=== PATIENT | male | born 1990 | race Caucasian/White ===

== ENCOUNTER 2017-04-05 20:01 | Emergency (ER) | payer SELFPAY ==
[2017-04-05] MEDS ORDERED: TORADOL IM ONE (21:35)
[2017-04-05 22:02] LABS: Bilirubin,Urine NEG (Negative); Blood,Urine LG (Negative); Color,Urine Red (Yellow); Nitrite,Urine NEG (Negative); Protein,Urine <15 mg/dL mg/dL (Negative); Urobilinogen,Urine < 2.0 mg/dL (<2.0); WBC,Urine < 1.0 /HPF (0.0-6.0)
[2017-04-05 22:15] LABS: Basophils # (Auto) 0.1 K/mm3 (0.0-0.1); Basophils % (Auto) 0.6 % (0.0-1.8); Eosinophils # (Auto) 0.1 K/mm3 (0.0-0.4); Eosinophils % (Auto) 0.9 % (0.0-4.3); Hemoglobin 16.2 gm/dl (11.8-15.2); Lymphocytes # (Auto) 3.3 K/mm3 (1.2-5.4); Mean Corpuscular HGB Conc 34 % (32-34); Mean Corpuscular Hemoglobin 28 pg (28-32); Mean Corpuscular Volume 84 fl (84-94); Monocytes # (Auto) 0.6 K/mm3 (0.0-0.8); Monocytes % (Auto) 4.9 % (0.0-7.3); Platelet Count 262 K/mm3 (140-440); Red Blood Count 5.73 M/mm3 (3.65-5.03); Red Cell Distribution Width 13.8 % (13.2-15.2)
[2017-04-05 22:32] LABS: Albumin 4.7 g/dL (3.9-5); BUN/Creatinine Ratio 21; Blood Urea Nitrogen 15 mg/dL (9-20); Calcium 11.3 mg/dL (8.4-10.2); Hemolysis Index 69
[2017-04-05 22:41] LABS: Alanine Aminotransferase 59 units/L (7-56)
--- NOTE | 2017-04-05 23:28 | Cat Scan Report ---
FINAL REPORT EXAM: CT ABDOMEN PELVIS WO CON HISTORY: rt flank pain/RLQ pain/hx renal calculi COMPARISON: None available. TECHNIQUE: Contiguous axial images were obtained. Additional sagittal and coronal reformatted images were obtained. FINDINGS: Lung bases are clear. Mild diffuse fatty infiltration of the liver. No calcified gallstones. Spleen, pancreas, adrenal glands are grossly unremarkable. Bilateral punctate nonobstructive renal calculi. Mild bilateral hydroureteronephrosis. Slightly more pronounced on the right. In the distal right ureter, closely grouped small calculi measuring 8 millimeters in craniocaudal dimension and approximately 4 x 4 millimeters in axial dimension. In the mid to distal left ureter, there are 2 closely associated calculi measuring 4 x 4 and 6 x 4 millimeters. No urinary bladder calculi. Prostate gland is unremarkable. No free fluid lymphadenopathy in the pelvic cavity. The appendix is normal in caliber. Large and small bowel loops normal in caliber. Lumbar vertebral body heights are preserved. Bony pelvis is grossly intact. IMPRESSION: Bilateral mid to distal ureteral calculi causing mild bilateral hydroureteronephrosis slightly more pronounced on the right. There multiple nonobstructive renal calculi bilaterally.
[2017-04-06] MEDS ORDERED: ZOFRAN IM ONE (10:27)
[2017-04-06] MEDS ORDERED: MORPHINE IM ONE (10:27)
--- NOTE | 2017-04-06 10:32 | Emergency Department Report ---
ED Abdominal Pain HPI - General Chief Complaint: Abdominal Pain Stated Complaint: KIDNEY STONE PAIN Time Seen by Provider: 04/06/17 10:21 Source: patient Mode of arrival: Ambulatory Limitations: No Limitations - History of Present Illness Initial Comments: Patient is 27 years old male with history of kidney stone presented with 2 day history of bilateral flank pain that radiated to his groin associated with hematuria. Patient stated that he does have nausea but no vomiting. No diarrhea. No fever. No other complaints. MD Complaint: flank pain Severity scale (0 -10): 10 - Related Data Allergies Allergy/AdvReac Type Severity Reaction Status Date / Time No Known Allergies Allergy Verified 04/06/17 10:23 ED Review of Systems ROS: Stated complaint: KIDNEY STONE PAIN Other details as noted in HPI Comment: All other systems reviewed and negative Constitutional: denies: chills, fever Cardiovascular: denies: chest pain, palpitations Gastrointestinal: abdominal pain, nausea. denies: vomiting, diarrhea, constipation, hematemesis Genitourinary: hematuria ED Past Medical Hx - Past Medical History Previous Medical History?: Yes Hx Kidney Stones: Yes - Surgical History Past Surgical History?: No - Social History Smoking Status: Never Smoker Substance Use Type: None ED Physical Exam - General Limitations: No Limitations General appearance: alert, in no apparent distress - Head Head exam: Present: atraumatic, normocephalic - Eye Eye exam: Present: normal appearance, PERRL - ENT ENT exam: Present: normal exam, normal orophraynx, mucous membranes moist - Neck Neck exam: Present: normal inspection. Absent: tenderness, meningismus - Respiratory Respiratory exam: Present: normal lung sounds bilaterally. Absent: respiratory distress, wheezes, rales, rhonchi, chest wall tenderness, accessory muscle use - Cardiovascular Cardiovascular Exam: Present: regular rate, normal rhythm, normal heart sounds - GI/Abdominal GI/Abdominal exam: Present: soft, normal bowel sounds. Absent: distended, tenderness, guarding, rebound, rigid, organomegaly, mass, bruit, pulsatile mass - Extremities Exam Extremities exam: Present: normal inspection, normal capillary refill - Back Exam Back exam: Present: normal inspection, full ROM, CVA tenderness (R). Absent: tenderness, CVA tenderness (L), muscle spasm, paraspinal tenderness, vertebral tenderness - Neurological Exam Neurological exam: Present: alert, oriented X3, CN II-XII intact - Skin Skin exam: Present: warm, intact, normal color ED Course Vital Signs 04/05/17 21:27 Temperature 97.8 F Pulse Rate 90 Respiratory 16 Rate Blood Pressure 161/93 O2 Sat by Pulse 98 Oximetry ED Medical Decision Making - Lab Data Result diagrams: 04/05/17 21:56 04/05/17 21:56 - Radiology Data Radiology results: report reviewed Referring Physician:LUCINA SALAZARPatient Name:JULY GARCIAPatient ID: [id number] of :[id number]:MaleAccession:[id number] Date:Report Status:Finalized Findings [facility] [address] [place] [address] Cat Scan Report Signed Patient: JULY GARCIA MR#: [id number] : 1990 Acct:[id number] Age/Sex: 27 / M ADM Date: 04/05/17 Loc: ED Attending Dr: Ordering Physician: LUCINA SALAZAR III, MD Date of Service: 04/05/17 Procedure(s): CT abdomen pelvis wo con Accession Number(s): [id number] cc: LUCINA SALAZAR III, MD FINAL REPORT EXAM: CT ABDOMEN PELVIS WO CON HISTORY: rt flank pain/RLQ pain/hx renal calculi COMPARISON: None available. TECHNIQUE: Contiguous axial images were obtained. Additional sagittal and coronal reformatted images were obtained. FINDINGS: Lung bases are clear. Mild diffuse fatty infiltration of the liver. No calcified gallstones. Spleen, pancreas, adrenal glands are grossly unremarkable. Bilateral punctate nonobstructive renal calculi. Mild bilateral hydroureteronephrosis. Slightly more pronounced on the right. In the distal right ureter, closely grouped small calculi measuring 8 millimeters in craniocaudal dimension and approximately 4 x 4 millimeters in axial dimension. In the mid to distal left ureter, there are 2 closely associated calculi measuring 4 x 4 and 6 x 4 millimeters. No urinary bladder calculi. Prostate gland is unremarkable. No free fluid lymphadenopathy in the pelvic cavity. The appendix is normal in caliber. Large and small bowel loops normal in caliber. Lumbar vertebral body heights are preserved. Bony pelvis is grossly intact. IMPRESSION: Bilateral mid to distal ureteral calculi causing mild bilateral hydroureteronephrosis slightly more pronounced on the right. There multiple nonobstructive renal calculi bilaterally. Transcribed By: LMA Dictated By: VELIA HERNANDEZ MD Electronically Authenticated By: VELIA HERNANDEZ MD Signed Date/Time: 04/05/171922 DD/ 22 TD/TT: 04/05/171922 Critical care attestation.: If time is entered above; I have spent that time in minutes in the direct care of this critically ill patient, excluding procedure time. ED Disposition Clinical Impression: Bilateral flank pain, Ureteral colic Disposition: - TO HOME OR SELFCARE Is pt being admited?: No Condition: Stable Instructions: Renal Colic (ED), Kidney Stones (ED), How to Strain Your Urine ( ED) Referrals: DEVANTE CLEMENT MD [Staff Physician] - 3-5 Days
[2017-04-06 10:37] VITALS: BP 142/78
== END 2017-04-06 10:46 | disposition home or self-care (01) ==
LOC: ED 20:01
DX: N23 Unspecified renal colic (principal)
CPT/HCPCS: 36415; 74176; 80053; 81001; 85025; 96372; 99284; J1885; J2270; J2405